=== PATIENT | male | born 1990 | race Caucasian/White ===

== ENCOUNTER 2018-07-20 15:09 | Emergency (ER) | payer MEDICAID ==
[~2018-07-20] VITALS: Ht 180.3 cm; Wt 113.0 kg
[2018-07-20] MEDS ORDERED: OXYCODONE HCL/ACETAMINOPHEN 5/325MG TABLET PO ONE (15:45)
[2018-07-20 16:19] VITALS: BP 145/56
== END 2018-07-20 17:01 | disposition home or self-care (01) ==
LOC: ER 15:09
DX: R07.89 Other chest pain (principal); I10 Essential (primary) hypertension; F12.10 Cannabis abuse, uncomplicated; F17.210 Nicotine dependence, cigarettes, uncomplicated; Z71.6 Tobacco abuse counseling
CPT/HCPCS: 71045; 93005; 99283; 99406

== ENCOUNTER 2019-03-05 10:57 | Emergency (ER) | payer MEDICARE ==
[~2019-03-05] VITALS: Ht 180.3 cm; Wt 129.0 kg
[2019-03-05] MEDS ORDERED: IBUPROFEN 400MG TABLET PO ONE (12:15)
[2019-03-05 13:40] VITALS: BP 136/91
== END 2019-03-05 19:18 | disposition home or self-care (01) ==
LOC: ER 14:44
DX: R03.0 Elevated blood-pressure reading, without diagnosis of hypertension (principal); F12.10 Cannabis abuse, uncomplicated; F17.210 Nicotine dependence, cigarettes, uncomplicated
CPT/HCPCS: 99283